=== PATIENT | female | born 1985 | race Caucasian/White ===

== ENCOUNTER 2021-03-29 07:49 | Outpatient (CLI) | payer BC ==
--- NOTE | 2021-03-29 09:33 | Ultrasound Report ---
PROCEDURE: Pelvic w/Transvaginal INDICATIONS: LEIOMYOMA OF UTERUS TECHNIQUE: Real-time scanning was performed of the pelvic organs, with image documentation. Additional endovagi nal scanning was necessary due to incomplete visualization of the adnexal and endometrial structures by transabdominal scanning. COMPARISON: None. FINDINGS: No pathologic free abdominal or pelvic fluid. Uterus: Uterus is normal in size at 7.9 x 4.1 x 5.4 cm., 91.5 cc The endometrium measures 4.9 mm in combined thickness. There is a fundal focus of subserosal heterogeneous echogenicity measuring 3.0 x 2.7 x 2.3 cm. This is predominantly right-sided. A similar left-sided fundal intramural focus of he terogeneous echogenicity is present measuring 2.2 x 1.6 x 1.6 cm. A mid anterior submucosal focus of heterogeneous echogenicity is present measuring 2.4 x 2.0 x 1.3 cm. Ovaries: Right ovary measures 2.0 x 1.8 x 1.8 cm volume 3.4 cc. Left ovary measures 3.0 x 2.8 x 2.47 m, volume 10.5 cc. IMPRESSION: Foci of heterogeneous echogenicity within the uterus most suggestive of fibroids. Reviewed by: Elicia Richardson MD on 03/29/2021 8:32 AM [email or web address] Approved by: Elicia Richardson MD on 03/29/2021 8:32 AM [email or web address] Station ID: [id number]
== END 2021-03-29 07:50 | disposition home or self-care (01) ==
LOC: DI 07:49
PROVIDERS: ATTEND Obstetrics & Gynecology
DX: D25.9 Leiomyoma of uterus, unspecified (principal); R93.89 Abnormal findings on diagnostic imaging of other specified body structures

== ENCOUNTER 2021-08-21 08:47 | Outpatient (CLI) | payer BC ==
[2021-08-21 09:17] LABS: BASOPHILS % (AUTO) 0.5 %; EOSINOPHILS # (AUTO) 0.1 10^3/uL (0.0-0.7); EOSINOPHILS % (AUTO) 1.5 %; HGB - HEMOGLOBIN 15.2 g/dL (12.0-16.0); LYMPHOCYTES # (AUTO) 1.6 10^3/uL (1.5-3.5); LYMPHOCYTES % (AUTO) 18.3 %; MEAN CORPUSCULAR HEMOGLOBIN 31.2 pg (27.0-31.0); MEAN CORPUSCULAR VOLUME 94.5 fL (81.0-99.0); MEAN PLATELET VOLUME 9.9 fL (7.9-10.8); MONOCYTES # (AUTO) 0.5 10^3/uL (0.0-1.0); MONOCYTES % (AUTO) 5.2 %; NEUTROPHILS # (AUTO) 6.4 10^3/uL (1.5-6.6); NEUTROPHILS % (AUTO) 74.2 %; PLT - PLATELET COUNT 235 10^3/uL (130-450); RED BLOOD COUNT 4.87 10^6/uL (4.20-5.40); RED CELL DISTRIBUTION WIDTH 12.4 % (12.0-15.0); WHITE BLOOD COUNT 8.7 x10^3/uL (4.8-10.8)
[2021-08-21 09:33] LABS: ALBUMIN 4.9 g/dL (3.2-5.5); ALBUMIN/GLOBULIN RATIO 1.6 (1.0-2.2); ALKALINE PHOSPHATASE 52 IU/L (42-121); ALT ALANINE AMINOTRANSFERASE 17 IU/L (10-60); AST ASPARTATE AMINOTRANSFERASE 20 IU/L (10-42); BILIRUBIN,TOTAL 1.7 mg/dL (0.2-1.0); BUN - BLOOD UREA NITROGEN 11 mg/dL (6-20); CALCIUM 9.7 mg/dL (8.5-10.3); CARBON DIOXIDE - CO2 26 mmol/L (21-32); CHLORIDE 102 mmol/L (101-111); CHOL/HDL RATIO 2.9 (<4.4); CHOLESTEROL 209 mg/dL; CREATININE 0.6 mg/dL (0.4-1.0); GFR - MDRD 112 (>89); GLUCOSE 90 mg/dL (70-100); HDL CHOLESTEROL 72 mg/dL; LDL CHOLESTEROL,CALCULATED 127 mg/dL; LDL/HDL RATIO 1.8 (<4.4); POTASSIUM 3.7 mmol/L (3.5-5.0); SODIUM 138 mmol/L (135-145); TOTAL PROTEIN 7.9 g/dL (6.7-8.2); TRIGLYCERIDES 48 mg/dL; VLDL CHOLESTEROL 10 mg/dL
[2021-08-21 13:40] LABS: ESTIMATED AVERAGE GLUCOSE 100 mg/dL (70-100); HEMOGLOBIN A1c% 5.1 % (4.27-6.07)
[2021-08-22 12:21] LABS: HEPATITIS B SURFACE ANTIGEN NON-REACTIVE (NON-REACTIVE)
[2021-08-22 15:46] LABS: HIV AG/AB 4TH GEN NON-REACTIVE (NON-REACTIVE)
== END 2021-08-21 08:48 | disposition home or self-care (01) ==
LOC: LAB 08:47
PROVIDERS: ATTEND Internal Medicine
DX: Z11.3 Encounter for screening for infections with a predominantly sexual mode of transmission (principal); Z13.0 Encounter for screening for diseases of the blood and blood-forming organs and certain disorders involving the immune mechanism; Z13.6 Encounter for screening for cardiovascular disorders; E78.5 Hyperlipidemia, unspecified; Z13.29 Encounter for screening for other suspected endocrine disorder
CPT/HCPCS: 36415; 80053; 80061; 83036; 83721; 85025; 86592; 87340; 87389; 87522

== ENCOUNTER 2021-12-27 14:14 | Outpatient (CLI) | payer BC ==
[2021-12-28 10:16] LABS: HEPATITIS C ANTIBODY NON-REACTIVE (NON-REACTIVE)
[2021-12-28 13:01] LABS: HIV AG/AB 4TH GEN NON-REACTIVE (NON-REACTIVE)
== END 2021-12-27 14:15 | disposition home or self-care (01) ==
LOC: LAB 14:14
PROVIDERS: ATTEND Internal Medicine
DX: Z11.3 Encounter for screening for infections with a predominantly sexual mode of transmission (principal)
CPT/HCPCS: 36415; 86317; 86803; 87389

== ENCOUNTER 2022-03-27 08:00 | Outpatient (CLI) | payer BC ==
--- NOTE | 2022-03-28 09:51 | XRAY Report ---
PROCEDURE: Foot 2 View LT INDICATIONS: L FOOT PX TECHNIQUE: 2 views of the foot were acquired. COMPARISON: None FINDINGS: Bones: No fractures or dislocations. No suspicious bony lesions. Soft tissues: No tibiotalar joint effusion. Achilles tendon appears normal. IMPRESSION: No fracture. No osseous lesion. If there are persistent symptoms or continued clinical concern for pa thology, then repeat plain film radiographs (7-10 days) or advanced imaging (CT, MR, bone scan) shoul d be considered for further evaluation. Reviewed by: Luisa Morales MD, PhD on 03/28/2022 9:49 AM PDT Approved by: Luisa Morales MD, PhD on 03/28/2022 9:49 AM PDT Station ID: [id number]
== END 2022-03-27 23:59 | disposition home or self-care (01) ==
LOC: DI.N 08:00
PROVIDERS: ATTEND Nurse Practitioner
DX: M79.672 Pain in left foot (principal)

== ENCOUNTER 2022-03-30 20:37 | Emergency (ER) | payer BC ==
[2022-03-30] MEDS ORDERED: LIDOCAINE VISCOUS 2% 15 ML UDC MM STA (20:41)
[2022-03-30] MEDS ORDERED: PANTOPRAZOLE 40 MG VIAL IVP STA (20:41)
[2022-03-30] MEDS ORDERED: MAG HYDROX/AL HYDROX/SIMETH 30 ML UDC PO STA (20:41)
[2022-03-30 20:59] LABS: BILIRUBIN,URINE NEGATIVE (NEGATIVE); GLUCOSE, URINE (UA) NEGATIVE (NEGATIVE); KETONES,URINE (UA) >=80 mg/dL (NEGATIVE); LEUKOCYTE ESTERASE, URINE NEGATIVE (NEGATIVE); NITRITE,URINE NEGATIVE (NEGATIVE); OCCULT BLOOD,URINE SMALL (NEGATIVE); PROTEIN,URINE NEGATIVE (NEGATIVE); UROBILINOGEN,URINE 0.2 (NORMAL) E.U./dL (NORMAL)
[2022-03-30] MEDS ORDERED: HYDROmorphone 1 MG/ML CARPUJECT IVP STA ×3 (21:00→23:18)
[2022-03-30] MEDS ORDERED: ONDANSETRON 4 MG/2 ML VIAL IVP STA ×2 (21:00→23:18)
[2022-03-30 21:06] LABS: CLARITY,URINE HAZY (CLEAR); HCG UR QUAL NEGATIVE
--- OUTSIDE RECORDS SUMMARY | 2022-03-30 21:12 | EXTERNAL MEDICAL SUMMARY RPT | Continuity of Care Document ---
:1985 Author Organization [facility] Address [address] [place] [address] Phone Care Team Providers Name Role Phone Carolina GLOVERens STAFF PHYSICAL THERAPIST Unavailable Unavailab Kaitlynn Isidro Unavailable Unavailable Allergies No information. Encounters No information. Medications date description facility 20220327 escitalopram oxalate All 20220327 escitalopram oxalate All Problems date description facility 20220327 FOOT 2 VIEWS All 20220327 Pain in limb All 20220327 Pain in left foot All 20220327 Foot pain All Results No information. Vital Signs date measurement value source 20220327 weight_standard 110 lb 20220327 weight_metric 49.9 kg 20220327 temperature_standard 98.9 F 20220327 temperature_metric 37.17 C 20220327 respiration_rate 18 /min 20220327 height_standard 61 in 20220327 height_metric 154.94 cm 20220327 heart_rate 77 /min 20220327 BP_systolic 121 mm[Hg] 20220327 BP_diastolic 79 mm[Hg] 20220327 BMI 20.86 kg/m2 20220327 weight_standard 110 lb 20220327 weight_metric 49.9 kg 20220327 temperature_standard 98.9 F 20220327 temperature_metric 37.17 C 20220327 respiration_rate 18 /min 20220327 height_standard 61 in 20220327 height_metric 154.94 cm 20220327 heart_rate 77 /min 20220327 BP_systolic 121 mm[Hg] 20220327 BP_diastolic 79 mm[Hg] 20220327 BMI 20.86 kg/m2
[2022-03-30 21:14] LABS: BASOPHILS % (AUTO) 0.2 %; EOSINOPHILS % (AUTO) 0.1 %; HCT - HEMATOCRIT 41.5 % (37.0-47.0); HGB - HEMOGLOBIN 14.3 g/dL (12.0-16.0); LYMPHOCYTES # (AUTO) 0.9 10^3/uL (1.5-3.5); MEAN CORPUSCULAR HEMOGLOBIN 31.5 pg (27.0-31.0); MEAN CORPUSCULAR HGB CONC 34.5 g/dL (32.0-36.0); MEAN CORPUSCULAR VOLUME 91.4 fL (81.0-99.0); MONOCYTES # (AUTO) 0.4 10^3/uL (0.0-1.0); MONOCYTES % (AUTO) 2.8 %; NEUTROPHILS # (AUTO) 11.3 10^3/uL (1.5-6.6); NEUTROPHILS % (AUTO) 89.6 %; PLT - PLATELET COUNT 231 10^3/uL (130-450); RED BLOOD COUNT 4.54 10^6/uL (4.20-5.40); RED CELL DISTRIBUTION WIDTH 13.2 % (12.0-15.0); WHITE BLOOD COUNT 12.6 x10^3/uL (4.8-10.8)
--- NOTE | 2022-03-30 21:20 | ED Physician Documentation ---
PD HPI ABD PAIN - Stated complaint Stated Complaint: ABD PX/NAUSEA - Chief complaint Chief Complaint: Abd Pain - History obtained from History obtained from: Patient - Additional information Additional information: 37-year-old woman with history of endometriosis and fibroids with history of fibroid and endometriosis surgery x3 but still has her appendix and gallbladder etc. She injured her ankle a couple weeks ago and has been on scheduled ibuprofen. Developed sudden onset epigastric pain radiating to both sides in the back as well as radiating down to the pelvis at 130 today. It is associated with nausea and one episode of nonbloody vomiting. She took omeprazole and Tums already without relief. Review of Systems Ten Systems: 10 systems reviewed and negative Constitutional: denies: Fever, Chills GI: reports: Abdominal Pain, Nausea, Vomiting. denies: Constipation, Diarrhea PD PAST MEDICAL HISTORY - Present Medications Home Medications: Ambulatory Orders Medication Instructions Recorded Confirmed Albuterol Sulfate [Proair Hfa 1 puffs INH Q4HR PRN 03/30/22 03/30/22 Inhaler] EPINEPHrine [Epinephrine] 0.3 mg IM ONCE PRN 03/30/22 03/30/22 Escitalopram [Lexapro] 10 mg PO DAILY 03/30/22 03/30/22 - Allergies Allergies/Adverse Reactions: Allergies Allergy/AdvReac Type Severity Reaction Status Date / Time melon Allergy Hives Verified 03/30/22 20:44 tree nut Allergy Anaphylaxis Verified 03/30/22 20:44 PD ED PE NORMAL - Vitals Vital signs reviewed: Yes - General General: Alert and oriented X 3, Other (She appears uncomfortable with mild resting tachycardia) - HEENT HEENT: PERRL, EOMI - Neck Neck: Supple, no meningeal sign, No bony TTP - Cardiac Cardiac: Other (Tachycardic and regular without murmur) - Respiratory Respiratory: No respiratory distress, Clear bilaterally - Abdomen Abdomen: Normal bowel sounds, Soft, Non tender - Back Back: No CVA TTP, No spinal TTP - Derm Derm: Normal color, Warm and dry - Extremities Extremities: No edema, No calf tenderness / cord - Neuro Neuro: Alert and oriented X 3, Normal speech Results - Vitals Vitals: Vital Signs - 24 hr 03/30/22 03/30/22 03/30/22 20:41 20:43 21:41 Temperature 36.3 C L 36.5 C 36.7 C Heart Rate 110 H 110 H 106 H Respiratory 16 16 20 Rate Blood Pressure 141/87 H 141/87 H 132/91 H O2 Saturation 98 98 99 03/30/22 03/31/22 03/31/22 23:00 01:00 02:12 Temperature Heart Rate 100 95 98 Respiratory 16 16 16 Rate Blood Pressure 129/85 H 127/94 H 134/91 H O2 Saturation 98 96 99 Oxygen O2 Source Room air - Labs Labs: Laboratory Tests 03/30/22 03/30/22 03/30/22 20:51 21:00 21:00 WBC 12.6 H RBC 4.54 Hgb 14.3 Hct 41.5 MCV 91.4 MCH 31.5 H MCHC 34.5 RDW 13.2 Plt Count 231 MPV 10.0 Neut # (Auto) 11.3 H Lymph # (Auto) 0.9 L [place] # (Auto) 0.4 Eos # (Auto) 0.0 Baso # (Auto) 0.0 Absolute Nucleated RBC 0.00 Nucleated RBC % 0.0 Sodium 135 Potassium 3.2 L Chloride 100 L Carbon Dioxide 24 Anion Gap 11.0 BUN 8 Creatinine 0.5 Estimated GFR (MDRD) 138 Glucose 124 H Lactic Acid Calcium 9.4 Total Bilirubin 1.6 H AST 16 ALT 13 Alkaline Phosphatase 45 Total Protein 7.9 Albumin 5.0 Globulin 2.9 Albumin/Globulin Ratio 1.7 Lipase 25 Urine Color YELLOW Urine Clarity HAZY Urine pH 6.0 Ur Specific [place] 1.025 Urine Protein NEGATIVE Urine Glucose (UA) NEGATIVE Urine Ketones >=80 H Urine Occult Blood SMALL H Urine Nitrite NEGATIVE Urine Bilirubin NEGATIVE Urine Urobilinogen 0.2 (NORMAL) Ur Leukocyte Esterase NEGATIVE Urine RBC 6-10 H Urine WBC 6-10 H Ur Squamous Epith Cells MOD Squamous H Amorphous Sediment Few Urine Bacteria Moderate H Ur Microscopic Review INDICATED Urine Culture Comments NOT INDICATED Urine HCG, Qual NEGATIVE SARS-CoV-2 (PCR) 03/30/22 03/30/22 03/31/22 23:08 23:54 01:59 WBC RBC Hgb Hct MCV MCH MCHC RDW Plt Count MPV Neut # (Auto) Lymph # (Auto) [place] # (Auto) Eos # (Auto) Baso # (Auto) Absolute Nucleated RBC Nucleated RBC % Sodium Potassium Chloride Carbon Dioxide Anion Gap BUN Creatinine Estimated GFR (MDRD) Glucose Lactic Acid 0.8 Calcium Total Bilirubin AST ALT Alkaline Phosphatase Total Protein Albumin Globulin Albumin/Globulin Ratio Lipase Urine Color YELLOW Urine Clarity CLEAR Urine pH 6.0 Ur Specific [place] <=1.005 Urine Protein NEGATIVE Urine Glucose (UA) NEGATIVE Urine Ketones 40 H Urine Occult Blood TRACE-INTA Urine Nitrite NEGATIVE Urine Bilirubin NEGATIVE Urine Urobilinogen 0.2 (NORMAL) Ur Leukocyte Esterase NEGATIVE Urine RBC Urine WBC Ur Squamous Epith Cells Amorphous Sediment Urine Bacteria Ur Microscopic Review NOT INDICATED Urine Culture Comments NOT INDICATED Urine HCG, Qual SARS-CoV-2 (PCR) NOT DETECTED PD MEDICAL DECISION MAKING - ED course ED course: 37-year-old woman presents with acute abdominal pain, upper abdominal pain radiating to the back and pelvis and given the recent ibuprofen use seem most consistent with gastritis. She had minimal relief with GI cocktail and this was followed by some IV Dilaudid. On reexamination at that time she was starting to develop some abdominal tenderness especially in the right lower quadrant and CT imaging was ordered. S/O to Dr Huynh at shift change pending CT read. Departure - Departure Disposition: 02 Transfer Acute Care Hosp Clinical Impression: Small bowel obstruction Condition: Good Discharge Date/Time: 03/31/22 02:55
[2022-03-30 21:21] LABS: AMORPHOUS SEDIMENT,UR Few /LPF; BACTERIA,URINE Moderate /HPF (None Seen); SQUAMOUS EPITHELIAL CELL,UR MOD Squamous (<= Few)
[2022-03-30 21:24] LABS: ALBUMIN/GLOBULIN RATIO 1.7 (1.0-2.2); BILIRUBIN,TOTAL 1.6 mg/dL (0.2-1.0); CALCIUM 9.4 mg/dL (8.5-10.3); CREATININE 0.5 mg/dL (0.4-1.0); POTASSIUM 3.2 mmol/L (3.5-5.0); TOTAL PROTEIN 7.9 g/dL (6.7-8.2)
[2022-03-30] MEDS ORDERED: SODIUM CHLORIDE 0.9% 1,000 ML IV STA (21:27)
[2022-03-30] MEDS ORDERED: IOPAMIDOL-300 100 ML VIAL ONE (22:05)
[2022-03-30] MEDS ORDERED: IOPAMIDOL-300 100 ML VIAL IVP ONE (22:33)
[2022-03-30 23:16] LABS: BILIRUBIN,URINE NEGATIVE (NEGATIVE); GLUCOSE, URINE (UA) NEGATIVE (NEGATIVE); KETONES,URINE (UA) 40 mg/dL (NEGATIVE); LEUKOCYTE ESTERASE, URINE NEGATIVE (NEGATIVE); NITRITE,URINE NEGATIVE (NEGATIVE); OCCULT BLOOD,URINE TRACE-INTA (NEGATIVE); PROTEIN,URINE NEGATIVE (NEGATIVE); UROBILINOGEN,URINE 0.2 (NORMAL) E.U./dL (NORMAL)
[2022-03-30 23:20] LABS: CLARITY,URINE CLEAR (CLEAR)
--- NOTE | 2022-03-30 23:24 | CT Report ---
PROCEDURE: Abdomen/Pelvis W INDICATIONS: IV only, RLQ pain CONTRAST: IV CONTRAST: Isovue 300 ml: 100 PO CONTRAST: *NO PO CONTRAST TECHNIQUE: After the administration of IV contrast, 5 mm thick sections acquired from the diaphragms to the symp hysis. 5 mm thick coronal and sagittal reformats were acquired. For radiation dose reduction, the f ollowing was used: automated exposure control, adjustment of mA and/or kV according to patient size. COMPARISON: Correlation made to pelvic ultrasound 03/29/2021 FINDINGS: Image quality: Excellent. ABDOMEN: Lung bases: Lung bases are clear. Heart size is normal. Solid organs: Liver and spleen are normal in size and enhancement. Gallbladder is normal. Biliary system is non dilated. Pancreas enhances normally. No adrenal nodules. Kidneys demonstrate normal size and enhancement, without hydronephrosis. Peritoneum and bowel: There are several loops of dilated fluid-filled bowel in the left abdomen. In the central abdomen, there is moderate fat stranding and mesenteric edema. There is likely a transiti on point here as the remainder of the small bowel is decompressed. The colon appears normal. The appe ndix is not visible. Nodes and vessels: No retroperitoneal or mesenteric adenopathy by size criteria. Aorta and inferior vena cava are normal in size. Miscellaneous: Tiny fat-containing umbilical hernia.. PELVIS: Genitourinary: Bladder wall thickness is normal. The anteverted uterus contains an IUD. Myometrium is heterogeneous, likely due to several small fibroids. There is left ovarian corpus luteum involutin g. The right ovary appears within normal limits. Miscellaneous: No inguinal hernias or adenopathy. Bones: No suspicious bony lesions. No vertebral body compression fractures. IMPRESSION: 1. Findings of possible small bowel obstruction with transition point in the low central abdomen. 2. Nonvisible appendix however there is no inflammation in the right lower quadrant. 3. Fibroid uterus containing an IUD. Reviewed by: Linda Valaedz MD on 03/30/2022 11:26 PM PDT Approved by: Linda Valadez MD on 03/30/2022 11:26 PM PDT Station ID: [id number]
[2022-03-31] MEDS ORDERED: SODIUM CHLORIDE 0.9% 1,000 ML IV STA (02:04)
[2022-03-31 02:13] VITALS: BP 134/91
--- NOTE | 2022-03-31 03:05 | ED Physician Documentation ---
ED Addendum - Addendum Addendum: 03/31/22 03:00 Received sign out from Dr. Lee at end of his shift; patient is pending CT A/P results at time of sign out. CT A/P c/w SBO with transition point. Patient required redosing of zofran and dilaudid on my shift for nausea and pain. I discussed the case with Dr. Mistry ([facility] hospitalist); he requests that I speak with Dr. Clement before patient can be considered for admission due to lack of OR services through the weekend. D/W Dr. Clement; he shares concern regarding lack of surgical services through weekend. The summary of my conversations with Dr. Mistry and Dr. Clement is recommendation to transfer patient to a hospital that has surgical services available. [facility], [facility], [place] all were contacted and no beds available. Dr. Mullen (hospitalist at [facility] [place]) accepts transfer. I provided patient with updates of my conversations with the [facility] hospitalist and surgeon as well as the lack of bed availability at the above hospitals, and finally that [facility] is accepting the transfer to their facility.
== END 2022-03-31 02:55 | disposition short-term general hospital (02) ==
LOC: ED 20:37
DX: K56.699 Other intestinal obstruction unspecified as to partial versus complete obstruction (principal)
CPT/HCPCS: 36415; 74177; 80053; 81001; 81003; 81025; 83605; 83690; 85025; 87635; 96374; 96375; 96376; 99284; 99285; A9270; J1170; Q9967; 87086

== ENCOUNTER 2022-03-31 02:44 | Outpatient (CLI) | payer BC | END 2022-03-31 02:45 | disposition short-term general hospital (02) | LOC: EMS 02:44 | PROVIDERS: ATTEND Emergency Medicine | DX: K56.609 Unspecified intestinal obstruction, unspecified as to partial versus complete obstruction (principal) | CPT/HCPCS: A0425; A0428 ==

== ENCOUNTER 2022-05-29 09:24 | Outpatient (CLI) | payer BC ==
[2022-05-30 07:10] LABS: HIV SCREEN 4TH GENERATION Non Reactive (Non Reactive)
== END 2022-05-29 09:25 | disposition home or self-care (01) ==
LOC: LAB 09:24
PROVIDERS: ATTEND Internal Medicine
DX: Z20.2 Contact with and (suspected) exposure to infections with a predominantly sexual mode of transmission (principal)
CPT/HCPCS: 36415; 87389